=== PATIENT | female | born 1975 | race Hispanic/Latino ===

== ENCOUNTER 2017-11-02 21:44 | Emergency (ER) | payer BC, OTHER ==
--- NOTE | 2017-11-03 00:05 | ER ---
Nurse's Notes [facility] Name: Kateryna Palmer Age: 42 yrs Sex: Female : 1975 Arrival Date: 11/02/2017 Time: 21:48 Bed 14 Private MD: Diagnosis: Contusion of left upper arm Presentation: 11/02 21:51 Presenting complaint: Patient states: that at work today she got hit with a steal metal fc heavy door to left upper arm. She is having pain. Transition of care: patient was not received from another setting of care. Onset of symptoms was November 02, 2017 at 14:30. Risk Assessment: Do you want to hurt yourself or someone else? Patient reports no desire to harm self or others. Initial Sepsis Screen: Does the patient meet any 2 criteria? No. Patient's initial sepsis screen is negative. Does the patient have a suspected source of infection? No. Patient's initial sepsis screen is negative. Care prior to arrival: Medication(s) given: Motrin, 800 mg, last at 1520. 21:51 Method Of Arrival: Ambulatory 21:51 Acuity: MIKA 4 fc Triage Assessment: 21:53 General: Appears comfortable, well groomed, Behavior is calm, cooperative, appropriate fc for age. Pain: Complains of pain in left arm Pain currently is 7 out of 10 on a pain scale. Quality of pain is described as aching, throbbing, Pain began today at 1430 Is continuous, Aggravated by increased activity, repositioning. EENT: No deficits noted. Neuro: Level of Consciousness is awake, alert, obeys commands, Oriented to person, place, time, situation. Cardiovascular: No deficits noted. Respiratory: No deficits noted. GI: No deficits noted. : No deficits noted. Derm: Skin is pink, warm \T\ dry. Musculoskeletal: Circulation, motion, and sensation intact. Capillary refill < 3 seconds, Range of motion: intact in all extremities, Reports pain in left arm and shoulder. Injury Description: left arm got hit by steal metal door. 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 - Social history:: Smoking status: Patient/guardian denies using tobacco. - Ebola Screening: : Patient negative for fever greater than or equal to 101.5 degrees Fahrenheit, and additional compatible Ebola Virus Disease symptoms Patient denies exposure to infectious person Patient denies travel to an Ebola-affected area in the 21 days before illness onset. Screenin:57 Abuse screen: Denies threats or abuse. Nutritional screening: No deficits noted. Tuberculosis screening: Fall Risk None identified. Assessment: 22:13 General: Appears in no apparent distress. uncomfortable, Behavior is calm, cooperative, jd3 appropriate for age. Pain: Complains of pain in left arm Pain currently is 7 out of 10 on a pain scale. Quality of pain is described as aching. Neuro: Level of Consciousness is awake, alert, obeys commands, Oriented to person, place, time, situation, Appropriate for age. Cardiovascular: Capillary refill < 3 seconds Patient's skin is warm and dry. Respiratory: Airway is patent Respiratory effort is even, unlabored, Respiratory pattern is regular, symmetrical. GI: No signs and/or symptoms were reported involving the gastrointestinal system. : No signs and/or symptoms were reported regarding the genitourinary system. EENT: No signs and/or symptoms were reported regarding the EENT system. Derm: Skin is intact, Skin is dry, Skin is normal, Skin temperature is warm. Musculoskeletal: Circulation, motion, and sensation intact. Range of motion: intact in all extremities. 23:49 Reassessment: Patient appears in no apparent distress at this time. Patient and/or jd3 family updated on plan of care and expected duration. Pain level reassessed. Patient is alert, oriented x 3, equal unlabored respirations, skin warm/dry/pink. 11/03 00:15 Reassessment: Patient appears in no apparent distress at this time. Patient and/or jd3 family updated on plan of care and expected duration. Pain level reassessed. Patient is alert, oriented x 3, equal unlabored respirations, skin warm/dry/pink. pt reported understanding of discharge instructions, even and steady gait upon discharge. Vital Signs: 11/02 21:55 BP 155 / 93; Pulse 66; Resp 20; Temp 97.5(O); Pulse Ox 96% on R/A; Weight 63.5 kg (R); fc Height 4 ft. 8 in. (142.24 cm) (R); Pain 7/10; 22:39 BP 136 / 84; Pulse 66; Resp 16 S; Pulse Ox 97% on R/A; Pain 7/10; jd3 23:49 BP 140 / 85; Pulse 60; Resp 17 S; Pulse Ox 97% on R/A; Pain 7/10; jd3 21:55 Body Mass Index 31.39 (63.50 kg, 142.24 cm) ED Course: 21:48 Patient arrived in ED. es 21:52 Triage completed. fc 21:55 Arm band placed on Patient placed in an exam room, on a stretcher. 21:57 Patient has correct armband on for positive identification. Call light in reach. 22:09 Joce Valdez MD is Attending Physician. 22:13 Christophe Rowley RN is Primary Nurse. jd3 23:35 Humerus Left XRAY In Process Unspecified. EDAZ 11/03 00:04 Abdullahi Alejandro MD is Referral Physician. 00:16 No provider procedures requiring assistance completed. Patient did not have IV access jd3 during this emergency room visit. Administered Medications: 00:09 Drug: [place] 5 mg-325 mg 1 tabs Route: PO; jd3 00:16 Follow up: Response: Medication administered at discharge. jd3 Outcome: 00:04 Discharge ordered by . 00:16 Discharged to home ambulatory, with family. jd3 00:16 Condition: stable 00:16 Discharge instructions given to patient, family, Instructed on discharge instructions, follow up and referral plans. medication usage, Demonstrated understanding of instructions, follow-up care, medications, Prescriptions given X 1. 00:17 Patient left the ED. jd3 Signatures: Dispatcher [employer] EDAZ Jimena Madden Felicia, RN RN Joce Valdez MD MD Christophe Rowley RN RN jd3
--- NOTE | 2017-11-03 00:05 | EDPHYS ---
Physician Documentation [facility] Name: Kateryna Palmer Age: 42 yrs Sex: Female : 1975 Arrival Date: 11/02/2017 Time: 21:48 Bed 14 Private MD: ED Physician Joce Valdez HPI: 11/02 23:57 This 42 yrs old Female presents to ER via Ambulatory with complaints of Arm gs Injury. 23:57 The patient or guardian complains of injury. The complaints affect the left bicep and gs left tricep. Context: The problem was sustained at work, resulted from a direct blow, by a door, from a heavy object. Onset: The symptoms/episode began/occurred acutely, today, at 14:00. Treatment prior to arrival includes: over the counter medications, NSAIDS. Modifying factors: The symptoms are alleviated by nothing. the symptoms are aggravated by movement, lifting weight. Associated signs and symptoms: Pertinent positives: tingling. Severity of symptoms: At their worst the symptoms were moderate, in the emergency department the symptoms are unchanged. The patient has not experienced similar symptoms in the past. 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 - Social history:: Smoking status: Patient/guardian denies using tobacco. - Ebola Screening: : Patient negative for fever greater than or equal to 101.5 degrees Fahrenheit, and additional compatible Ebola Virus Disease symptoms Patient denies exposure to infectious person Patient denies travel to an Ebola-affected area in the 21 days before illness onset. ROS: 23:57 All other systems are negative. gs Exam: 23:57 Head/Face: Normocephalic, atraumatic. Eyes: Pupils equal round and reactive to light, gs extra-ocular motions intact. Lids and lashes normal. Conjunctiva and sclera are non-icteric and not injected. Cornea within normal limits. Periorbital areas with no swelling, redness, or edema. ENT: Nares patent. No nasal discharge, no septal abnormalities noted. Tympanic membranes are normal and external auditory canals are clear. Oropharynx with no redness, swelling, or masses, exudates, or evidence of obstruction, uvula midline. Mucous membranes moist. Neck: Trachea midline, no thyromegaly or masses palpated, and no cervical lymphadenopathy. Supple, full range of motion without nuchal rigidity, or vertebral point tenderness. No Meningismus. Chest/axilla: Normal chest wall appearance and motion. Nontender with no deformity. No lesions are appreciated. Cardiovascular: Regular rate and rhythm with a normal S1 and S2. No gallops, murmurs, or rubs. Normal PMI, no JVD. No pulse deficits. Respiratory: Lungs have equal breath sounds bilaterally, clear to auscultation and percussion. No rales, rhonchi or wheezes noted. No increased work of breathing, no retractions or nasal flaring. Abdomen/GI: Soft, non-tender, with normal bowel sounds. No distension or tympany. No guarding or rebound. No evidence of tenderness throughout. Back: No spinal tenderness. No costovertebral tenderness. Full range of motion. Skin: Warm, dry with normal turgor. Normal color with no rashes, no lesions, and no evidence of cellulitis. Neuro: Awake and alert, GCS 15, oriented to person, place, time, and situation. Cranial nerves II-XII grossly intact. Motor strength 5/5 in all extremities. Sensory grossly intact. Cerebellar exam normal. Normal gait. 23:57 Constitutional: The patient appears alert, awake. 23:57 Musculoskeletal/extremity: Extremities: noted in the left tricep and left bicep: tenderness, There is no evidence of deformity, swelling, ROM: no acute changes, Circulation is intact in all extremities. Sensation intact. Vital Signs: 21:55 BP 155 / 93; Pulse 66; Resp 20; Temp 97.5(O); Pulse Ox 96% on R/A; Weight 63.5 kg (R); fc Height 4 ft. 8 in. (142.24 cm) (R); Pain 7/10; 22:39 BP 136 / 84; Pulse 66; Resp 16 S; Pulse Ox 97% on R/A; Pain 7/10; jd3 23:49 BP 140 / 85; Pulse 60; Resp 17 S; Pulse Ox 97% on R/A; Pain 7/10; jd3 21:55 Body Mass Index 31.39 (63.50 kg, 142.24 cm) MDM: 22:49 Patient medically screened. 23:57 Differential diagnosis: closed fracture, contusion. Data reviewed: vital signs, nurses notes. Response to treatment: the patient's symptoms have mildly improved after treatment, and as a result, I will discharge patient. 11/02 22:50 Order name: Humerus Left XRAY gs Administered Medications: 11/03 00:09 Drug: [place] 5 mg-325 mg 1 tabs Route: PO; jd3 00:16 Follow up: Response: Medication administered at discharge. jd3 Disposition: 11/03/17 00:04 Discharged to Home. Impression: Contusion of left upper arm. - Condition is Stable. - Discharge Instructions: Contusion, [id number]. - Prescriptions for Tylenol- Codeine #4 300-60 mg Oral Tablet - take 1 tablet by ORAL route every 6 hours As needed; 6 tablet. - Medication Reconciliation Form, Thank You Letter, Antibiotic Education, Prescription Opioid Use, Work release form form. - Follow up: Abdullahi Alejandro MD; When: 2 - 3 days; Reason: Re-evaluation by your physician. Signatures: Dispatcher [employer] EDMS Gertrude Martell RN RN Joce Valdez MD MD Christophe Rowley RN RN jd3 Corrections: (The following items were deleted from the chart) 00:17 00:04 11/03/2017 00:04 Discharged to Home. Impression: Contusion of left upper arm. jd3 Condition is Stable. Forms are Medication Reconciliation Form, Thank You Letter, Antibiotic Education, Prescription Opioid Use. Follow up: Dr. Abdullahi Alejandro; When: 2 - 3 days; Reason: Re-evaluation by your physician.
[2017-11-03] MEDS ORDERED: HYDROCODONE/APAP 5/325 MG TAB ONE (00:08)
--- NOTE | 2017-11-03 07:48 | RAD REPORT ---
EXAM DESCRIPTION: RAD - Humerus Left - 11/02/2017 11:36 pm CLINICAL HISTORY: Left arm pain status post injury FINDINGS: No fracture is seen
== END 2017-11-03 00:17 | disposition home or self-care (01) ==
LOC: ER 21:44
DX: S40.022A Contusion of left upper arm, initial encounter (principal); W22.8XXA Striking against or struck by other objects, initial encounter; Y93.89 Activity, other specified; Y92.69 Other specified industrial and construction area as the place of occurrence of the external cause
CPT/HCPCS: 99283

== ENCOUNTER 2019-01-21 18:11 | Emergency (ER) | payer OTHER, SELFPAY ==
--- NOTE | 2019-01-21 18:29 | ER ---
Nurse's Notes [facility] Name: Kateryna Palmer Age: 43 yrs Sex: Female : 1975 Arrival Date: 01/21/2019 Time: 18:12 Bed Waiting Private MD: Diagnosis: Presentation: 01/21 18:28 Note Patient told registration staff she was just going to see her family doctor [email or web address] tomorrow. ED Course: 18:12 Patient arrived in ED. as Administered Medications: No medications were administered Outcome: 18:28 Patient left the ED. aj1 Signatures: Belem Salazar RN RN aj1 Gi Mcmanus
== END 2019-01-21 18:28 | disposition left against medical advice (07) ==
LOC: ER 18:11
DX: Z02.9 Encounter for administrative examinations, unspecified (principal); Z53.21 Procedure and treatment not carried out due to patient leaving prior to being seen by health care provider

== ENCOUNTER 2021-09-28 03:23 | Inpatient (IN) | payer BC, SELFPAY ==
--- OUTSIDE RECORDS SUMMARY | 2021-09-28 03:26 | XMS REPORT | Continuity of Care Document ---
:1975 Author Organization [facility] t Address [address] [place] [address] Care Team Providers Name Role Phone Boyd Phelps MD Primary Care Physician [phone] Amber KRUEGER Attending Clinician Michel Phelps MD Attending Clinician PANCHITO Attending Clinician Unavailable UNKNOWN Attending Clinician Unavailable ALAINA Attending Clinician Unavailable Payers Payer Name Policy Type Policy Number Effective Date Expiration Date S [facility] [id number] 2016 EMPLOYEE PLAN 00:00:00 Problems Condition Condition Condition Status Onset Resolution Last Treating Co mments Source Name Details Category Date Date Treatment Clinician Date Colon Colon Disease Active Univers cancer cancer 6-11 [place] Attention Attention Disease Active 2020-04 Uni vers deficit deficit 1-02 ity of disorder disorder 00:00: [place] (ADD) in (ADD) in 00 Medica l adult adult Branch Hyperchole Hyperchole Disease Active U nivers sterolemia sterolemia 5-05 it y of 00:00: [place] 00 Medical Branch Chest pain Chest pain Disease Active 2019-04 U nivers 2-26 ity of 00:00: [place] 00 Medical Branch Chronic Chronic Disease Active 2019-04 Univers low back low back 2-26 [place] of pain with pain [place] bilateral bilateral 00 Medi dell sciatica sciatica Branch Leg pain Leg pain Disease Active Unive rs 4-01 ity of 00:00: [place] [id number] Medical Branch Palpitatio Palpitatio Disease Active U nivers ns ns 3-16 ity of 00:00: [place] [address] Medical Branch Obesity Obesity Disease Active 2019- Univers (BMI (BMI 3-16 ity of 30-39.9) 30-39.9) 00:00: [place] [address] Medical Branch Essential Essential Disease Active Uni vers hypertensi hypertensi 3-16 it y of on on 00:00: [place] [address] Medical Branch PVC PVC Disease Active Univers (premature (premature 3-16 [place] of ventric[place] ventricula [place] Medical contractio contractio Br anch n) n) Abnormal Abnormal Disease Active Unive rs EKG EKG 3-16 ity of 00:00: [place] [address] Medical Branch Elevated Elevated Disease Active Unive rs brain brain 3-16 ity of natriureti natriureti [place] c peptide c peptide 00 Medi dell (BNP) (BNP) Branch level level Allergies, Adverse Reactions, Alerts Allergy Allergy Status Severity Reaction(s) Onset Inactive Treating Comm ents Source Name Type Date Date Clinician NO KNOWN Drug Active Univers ALLERGIE Class ity of S [facility] Social History Social Habit Start Date Stop Date Quantity Comments Source Exposure to Not sure [facility] SARS-CoV-2 [place] [facility] (event) Branch History SDOH University o f Alcohol Std [place] [facility] Drinks Branch History SDOH University o f Alcohol Binge [place] [facility] Branch History SDIL University o f Alcohol Comment [place] [facility] ical [facility] Alcohol intake 2021-09-26 2021-09-26 Lifetime University of 00:00:00 00:00:00 non-drinker [place] [facility] (finding) Branch History SDOH 2021-09-25 2021-09-25 1 University o f Alcohol Frequency 00:00:00 00:00:00 [place] M edical Branch Tobacco use and 2019-01-21 2019-01-21 Never used Universit y of exposure 00:00:00 00:00:00 [facility] Sex Ass[birth year] At [birth year] Universit y of 00:00:00 00:00:00 [facility] Smoking Status Start Date Stop Date Source Never smoker [facility] Medications Ordered Filled Start Stop Current Ordering Indication Dosage Frequency Signature Comments Components Source Medication Medication Date Date Medication? Clinician (SIG) Name Name lisdexamfet Yes [id number] 40mg Take 1 Univers amine 1-31 capsule by ity of (VYVANSE) 00:00: mouth [place] 40 mg 00 every Medical capsule morning. Branch METOPROLOL Yes [id number] TAKE 1 U nivers SUCCINATE 1-10 TABLET BY ity o f XL 25 mg 24 00:00: MOUTH [place] hr tablet 00 EVERY DAY Medic al Branch felodipine Yes [id number] 5mg Take 1 U nivers 5 mg 24 hr 9-17 tablet by ity of tablet 00:00: mouth [place] 00 daily. Medical Branch METOPROLOL Yes PVC TAKE 1 Unive rs SUCCINATE 5-07 (premature TABLET BY ity of XL 25 mg 24 00:00: ventricular MOUTH [place] hr tablet 00 contraction EVERY DAY Medical ) Branch METOPROLOL PVC TAKE 1 Univ ers SUCCINATE 2-01 05-07 (premature TABLET BY ity of XL 25 mg 24 00:00: 00:00 ventricular MOUTH [place] hr tablet 00 :00 contraction EVERY DAY Medical ) Branch felodipine 2019-04 Yes Uncontrolle 5mg Take 1 Univers 5 mg 24 hr 2-21 d tablet by ity of tablet 00:00: hypertensio mouth [place] 00 n daily. Medical Branch methocarbam 2019-04 Yes Chronic 500mg Take 1 Univers oL 500 mg 2-21 bilateral tablet by ity of tablet 00:00[place] 4 [place] pain with (four) Medical bilateral times Branch sciatica daily as needed (muscle pain or spasm). Immunizations Ordered Filled Immunization Date Status Comments Sourc e Immunization Name Name SARS-COV-2 COVID-19 2021-05-02 Completed Unive rsity of MODERNA 0.5ML 00:00:00 [place] Medic al BOOSTER VACCINE Branch SARS-COV-2 COVID-19 2020-05-23 Completed Unive rsity of MODERNA VACCINE 00:00:00 [place] Med ical Branch SARS-COV-2 COVID-19 2020-04-25 Completed Unive rsity of MODERNA VACCINE 00:00:00 [place] Med ical Branch Vital Signs Vital Name Observation Time Observation Value Comments Source Heart rate 2021-09-25 21:22:00 78 /min [facility] Body temperature 2021-09-25 21:22:00 36.78 Itzel [facility] Respiratory rate 2021-09-25 21:22:00 18 /min [facility] Body height 2021-09-25 21:22:00 142.2 cm [facility] Body weight 2021-09-25 21:22:00 70.761 kg [facility] BMI 2021-09-25 21:22:00 34.97 kg/m2 [facility] Systolic blood 2021-09-25 21:22:00 168 mm[facility]Hg[facility] Diastolic blood 2021-09-25 21:22:00 102 mm[Hg] [facility] Procedure Date / Time Performed Performing Clinician [facility] e PAP SMEAR-LIQUID 2021-09-25 21:35:00 Brook [facility] [place] Plan of Care Planned Activity Planned Date Details Comments Source Future Scheduled 2021-04-07 Depression screening Uni [facility] Test 00:00:00 (procedure) [code = Medical Branch [id number]] Future Scheduled 2020-12-17 INFLUENZA VACCINE [facility] Test 00:00:00 (Season Ended) [code Medical Branch = INFLUENZA VACCINE (Season Ended)] Future Scheduled 2016 Screening for [facility] Test 00:00:00 malignant neoplasm Medical [facility] [place] of breast (procedure) [code = 348972929] Future Scheduled 1997 Screening for [facility] Test 00:00:00 malignant neoplasm Medical [facility] of cervix (procedure) [code = 322575397] Future Scheduled 1995-06-25 DTaP,Tdap,and Td Univers [facility] Test 00:00:00 Vaccines (1 - Tdap) Medical Branch [code = DTaP,Tdap,and Td Vaccines (1 - Tdap)] Future Scheduled 1994 Hepatitis C [facility] Test 00:00:00 screening Medical Branch (procedure) [code = [id number]] Future Scheduled 1992 SARS-CoV-2 [facility] Test 00:00:00 (COVID-19) Vaccine Medical B ranch (1) [code = SARS-CoV-2 (COVID-19) Vaccine (1)] Encounters Start End Encounter Admission Attending Care Care Encounter Source Date/Time Date/Time Type Type Clinicians Facility Department ID 2021-02-12 Emergency [facility] [id number] Univers 14:35:50 [facility] 2021-09-25 2021-09-25 Office Amber [facility] [id number] Univers 16:15:00 16:39:48 Visit Brook STEWART [id number] it y of WOMEN'S [id number] [facility] [id number] [address] 2019-07-02 2019-07-02 [id number] Univers 13:20:00 13:20:00 FELIPA [id number] [facility] 2019-07-02 2019-07-02 Outpatient R PANCHITO [facility] [id number] Univers 13:20:00 13:20:00 FELIPA [facility] 2019-07-01 2019-07-01 Outpatient R [facility] [id number] Univers 21:00:00 21:00:00 [id number] [facility] 2019-07-01 2019-07-01 Outpatient R UNKNOWN, [facility] [id number] Univers 21:00:00 21:00:00 ATTENDING maria elena [facility] 2019-01-21 2019-01-21 [id number] Univers 19:00:00 20:03:07 CLIFF [facility] Results This patient has no known results.
[2021-09-28 06:10] LABS: Urine Blood 1+ (Negative); Urine Glucose Negative (Negative); Urine Protein Negative (Negative)
[2021-09-28 06:19] LABS: Absolute Lymphocytes (CBC) 1.8 K/uL (0.7-4.9); Hematocrit 42.7 % (36.0-45.0); MPV 8.7 fL (7.6-11.3); RBC Red Blood Cell Count 4.81 M/uL (3.86-4.86)
[2021-09-28 06:35] LABS: Albumin 3.8 g/dL (3.4-5.0); Bilirubin Direct 0.3 mg/dL (0-0.2); Bilirubin Total 1.3 mg/dL (0.2-1.0); Magnesium 2.2 mg/dL (1.8-2.4); Potassium 3.2 mmol/L (3.5-5.1); Protein, Total 7.9 g/dL (6.4-8.2)
[2021-09-28 06:47] LABS: Troponin High Sensitivity 91.7 pg/mL (<58.9)
[2021-09-28] MEDS ORDERED: POTASSIUM 25 MEQ EFFERV TAB ONE (07:12)
--- NOTE | 2021-09-28 07:17 | ER ---
Nurse's Notes [facility] Name: Kateryna Palmer Age: 46 yrs Sex: Female : 1975 Arrival Date: 09/28/2021 Time: 03:27 Bed 14 Private MD: Diagnosis: Dyspnea, unspecified-Elevated Troponin level Presentation: 09/28 04:12 Chief complaint: Patient states: C/o cough, SOB, and left shoulder pain 8/, states ll3 cough started about 1 month ago, states was reactive to TB screen 2 months ago, states they took a chest x-ray and it was clear, states grandson tested positive for covid. Coronavirus screen: Vaccine status: Patient reports receiving the 2nd dose of the covid vaccine. cough unrelated to allergies, difficulty breathing, muscle pain, shortness of breath. Ebola Screen: No symptoms or risks identified at this time. Initial Sepsis Screen: Does the patient meet any 2 criteria? No. Patient's initial sepsis screen is negative. Does the patient have a suspected source of infection? No. Patient's initial sepsis screen is negative. Risk Assessment: Do you want to hurt yourself or someone else? Patient reports no desire to harm self or others. Onset of symptoms is unknown. 04:12 Method Of Arrival: Ambulatory ll3 04:12 Acuity: MIKA 3 ll3 Triage Assessment: 04:16 General: Appears uncomfortable, Behavior is calm, cooperative. Pain: Complains of pain ll3 in anterior aspect of left shoulder Pain currently is 8 out of 10 on a pain scale. Neuro: Level of Consciousness is awake, alert, obeys commands, Oriented to person, place, time, situation. Cardiovascular: Patient's skin is warm and dry. Respiratory: Reports shortness of breath pain with cough pain with movement Respiratory effort is even, unlabored, Respiratory pattern is regular, symmetrical, Onset: The symptoms/episode began/occurred at an unknown time. the patient has mild shortness of breath. Respiratory: Derm: Skin is pink, warm \T\ dry. 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 - Social history:: Smoking status: Patient denies any tobacco usage or history of. Screenin:20 Abuse screen: Denies threats or abuse. Nutritional screening: No deficits noted. ll3 Tuberculosis screening: Never had TB. Possible symptoms: cough for more than 2 weeks, Risk factors: previous positive skin test. 06:50 Fall Risk No fall in past 12 months (0 pts). No secondary diagnosis (0 pts). IV access ll3 (20 points). Ambulatory Aid- None/Bed Rest/Nurse Assist (0 pts). Gait- Normal/Bed Rest/Wheelchair (0 pts) Mental Status- Oriented to own ability (0 pts). Total Nathan Fall Scale indicates No Risk (0-24 pts). Assessment: 04:20 General: See triage assessment. Cardiovascular: Rhythm is. Respiratory: Airway is patentll3 05:30 Reassessment: No changes from previously documented assessment. Patient and/or family ll3 updated on plan of care and expected duration. Pain level reassessed. Patient is alert, oriented x 3, equal unlabored respirations, skin warm/dry/pink. 06:47 Reassessment: No changes from previously documented assessment. Patient and/or family ll3 updated on plan of care and expected duration. Pain level reassessed. Patient is alert, oriented x 3, equal unlabored respirations, skin warm/dry/pink. 07:00 Reassessment: No changes from previously documented assessment. Patient and/or family ll1 updated on plan of care and expected duration. Pain level reassessed. Patient is alert, oriented x 3, equal unlabored respirations, skin warm/dry/pink. report received from night monitor RN. 08:00 Reassessment: No changes from previously documented assessment. Patient and/or family ll1 updated on plan of care and expected duration. Pain level reassessed. Patient is alert, oriented x 3, equal unlabored respirations, skin warm/dry/pink. Vital Signs: 04:12 BP 167 / 89; Pulse 75; Resp 19; Temp 98.6(O); Pulse Ox 99% on R/A; Weight 71.67 kg (R); ll3 Height 4 ft. 7 in. (139.70 cm) (R); Pain 8/10; 05:30 BP 153 / 103; Pulse 74; Resp 20; Pulse Ox 100% on R/A; ll3 06:47 BP 153 / 95; Pulse 68; Resp 20; Pulse Ox 100% on R/A; ll3 07:45 BP 186 / 109; Pulse 81; Resp 18; Pulse Ox 100% on R/A; ll1 04:12 Body Mass Index 36.72 (71.67 kg, 139.70 cm) ll3 ED Course: 03:27 Patient arrived in ED. bp1 03:59 Ramesh Pierce MD is Attending Physician. mh7 04:16 Triage completed. ll3 04:16 Arm band placed on Patient placed in an exam room, on a stretcher, on pulse oximetry. ll3 04:20 Patient has correct armband on for positive identification. Bed in low position. Call ll3 light in reach. Side rails up X 1. 04:30 Chest Pa And Lat (2 Views) XRAY In Process Unspecified. EDMS 06:28 EKG done, by ED staff, reviewed by Ramesh Pierce MD. Missed attempt(s): 22 gauge in mh5 left forearm. 06:44 Ca Pillai, EDITH is Primary Nurse. ll3 06:48 Notified ED physician of a critical lab result(s). troponin of 91.7 Dr Pierce notified. bb 07:00 Warm blanket given. biofuels processing technician on. Pulse ox on. NIBP on. mh5 07:15 Abner Hankins MD is Hospitalizing Provider. mh7 08:12 Missed attempt(s): 22 gauge in right antecubital area. Bleeding controlled, band aid mb4 applied, catheter tip intact. 08:15 Missed attempt(s): 22 gauge in right forearm. Bleeding controlled, band aid applied, ll1 catheter tip intact. 08:16 Missed attempt(s): 22 gauge in right forearm. Bleeding controlled, band aid applied, ll1 catheter tip intact. 08:31 Inserted saline lock: 22 gauge in right wrist, using aseptic technique. ss 08:44 Chest For Pe Angio In Process Unspecified. EDMS 21:13 No provider procedures requiring assistance completed. Patient admitted, IV remains in vc1 place. Administered Medications: 07:30 Not Given (Duplicate Order): Aspirin Chewable Tablet 162 mg PO once ll1 07:39 Drug: Potassium Effervescent Tablet 50 mEq Route: PO; ll1 07:40 Drug: Aspirin Chewable Tablet 162 mg Route: PO; ll1 Medication: 06:50 VIS not applicable for this client. ll3 Outcome: 07:16 Decision to Hospitalize by Provider. [facility] 08:31 Instructed on the need for admit. ss 21:13 Admitted to Tele accompanied by tech, room 414, Report called to EDITH Magana vc1 21:13 Condition: good 21:13 Patient left the ED. vc1 Signatures: Dispatcher [employer] EDMarcella Hardy RN RN bb Rani Zapien RN RN ss Martinez, Maria [facility] Olga Smith [facility] Karla Wilkes RN RN ll1 Obdulia Neely Maurice, MD MD [facility] Ca Pillai RN RN ll3 Laney Chaparro RN RN vc1
--- NOTE | 2021-09-28 07:17 | EDPHYS ---
Physician Documentation [facility] Name: Kateryna Palmer Age: 46 yrs Sex: Female : 1975 Arrival Date: 09/28/2021 Time: 03:27 Bed 14 Private MD: ED Physician Ramesh Pierce HPI: 09/28 04:35 This 46 yrs old Female presents to ER via Ambulatory with complaints of mh7 Shortness Of Breath, Shoulder Pain. 04:35 The patient has shortness of breath with light activity. Onset: The symptoms/episode mh7 began/occurred 2 week(s) ago. Duration: The symptoms are intermittent, with no pattern. The patient's shortness of breath is aggravated by coughing, exertion, light activity, is alleviated by nothing. Associated signs and symptoms: Pertinent positives: non-productive cough, Pertinent negatives: chest pain, diaphoresis, dizziness, fever, hemoptysis, loss of consciousness, nausea, numbness in extremities, visual changes, vomiting. Severity of symptoms: At their worst the symptoms were moderate 7 day(s) ago, in the emergency department the symptoms are unchanged. ICHTHYOLOGIST: 04:16 LMP 09/02/2021 ll3 Historical: - Allergies: 04:16 No Known Allergies; ll3 - Immunization history:: Client reports receiving the 2nd dose of the Covid vaccine. - Social history:: Smoking status: Patient denies any tobacco usage or history of. ROS: 04:35 Constitutional: Negative for fever, chills, and weight loss, Eyes: Negative for injury, mh7 pain, redness, and discharge, ENT: Negative for injury, pain, and discharge, Neck: Negative for injury, pain, and swelling, Cardiovascular: Negative for chest pain, palpitations, and edema, Abdomen/GI: Negative for abdominal pain, nausea, vomiting, diarrhea, and constipation, Back: Negative for injury and pain, : Negative for injury, bleeding, discharge, and swelling, MS/Extremity: Negative for injury and deformity, Skin: Negative for injury, rash, and discoloration, Neuro: Negative for headache, weakness, numbness, tingling, and seizure, Psych: Negative for depression, anxiety, suicide ideation, homicidal ideation, and hallucinations, Allergy/Immunology: Negative for hives, rash, and allergies, Endocrine: Negative for neck swelling, polydipsia, polyuria, polyphagia, and marked weight changes, Hematologic/Lymphatic: Negative for swollen nodes, abnormal bleeding, and unusual bruising. Exam: 04:35 Constitutional: This is a well developed, well nourished patient who is awake, alert, mh7 and in no acute distress. Head/Face: Normocephalic, atraumatic. Eyes: Pupils equal round and reactive to light, extra-ocular motions intact. Lids and lashes normal. Conjunctiva and sclera are non-icteric and not injected. Cornea within normal limits. Periorbital areas with no swelling, redness, or edema. Neck: Trachea midline, no thyromegaly or masses palpated, and no cervical lymphadenopathy. Supple, full range of motion without nuchal rigidity, or vertebral point tenderness. No Meningismus. Chest/axilla: Normal chest wall appearance and motion. Nontender with no deformity. No lesions are appreciated. Cardiovascular: Regular rate and rhythm with a normal S1 and S2. No gallops, murmurs, or rubs. Normal PMI, no JVD. No pulse deficits. Respiratory: Lungs have equal breath sounds bilaterally, clear to auscultation and percussion. No rales, rhonchi or wheezes noted. No increased work of breathing, no retractions or nasal flaring. Abdomen/GI: Soft, non-tender, with normal bowel sounds. No distension or tympany. No guarding or rebound. No evidence of tenderness throughout. Back: No spinal tenderness. No costovertebral tenderness. Full range of motion. Skin: Warm, dry with normal turgor. Normal color with no rashes, no lesions, and no evidence of cellulitis. MS/ Extremity: Pulses equal, no cyanosis. Neurovascular intact. Full, normal range of motion. Neuro: Awake and alert, GCS 15, oriented to person, place, time, and situation. Cranial nerves II-XII grossly intact. Motor strength 5/5 in all extremities. Sensory grossly intact. Cerebellar exam normal. Normal gait. Psych: Awake, alert, with orientation to person, place and time. Behavior, mood, and affect are within normal limits. Vital Signs: 04:12 BP 167 / 89; Pulse 75; Resp 19; Temp 98.6(O); Pulse Ox 99% on R/A; Weight 71.67 kg (R); ll3 Height 4 ft. 7 in. (139.70 cm) (R); Pain 8/10; 05:30 BP 153 / 103; Pulse 74; Resp 20; Pulse Ox 100% on R/A; ll3 06:47 BP 153 / 95; Pulse 68; Resp 20; Pulse Ox 100% on R/A; ll3 07:45 BP 186 / 109; Pulse 81; Resp 18; Pulse Ox 100% on R/A; ll1 04:12 Body Mass Index 36.72 (71.67 kg, 139.70 cm) ll3 MDM: 07:14 Differential diagnosis: Anemia Anxiety Reaction asthma, Bronchitis CHF exacerbation, mh7 Chronic Obstructive Pulmonary Disease Myocardial Infarction pneumonia, Pneumothorax Psychogenic pulmonary edema, Pulmonary Embolism. Data reviewed: vital signs, nurses notes, lab test result(s), cardiac enzymes, CBC, electrolytes, urinalysis, EKG, radiologic studies, plain films. Data interpreted: Pulse oximetry: on room air is 100 %. Interpretation: normal. Counseling: I had a detailed discussion with the patient and/or guardian regarding: the historical points, exam findings, and any diagnostic results supporting the discharge/admit diagnosis, lab results, radiology results, the need for further work-up and treatment in the hospital. Response to treatment: the patient's symptoms have mildly improved after treatment. 07:16 Patient medically screened. [facility] 09/28 04:09 Order name: Influenza Screen (A ; Complete Time: 06:48 [facility] 09/28 04:58 Order name: Basic Metabolic Panel; Complete Time: 06:48 [facility] 09/28 04:58 Order name: CBC with Diff; Complete Time: 06:48 [facility] 09/28 04:58 Order name: D-Dimer; Complete Time: 07:31 [facility] 09/28 04:58 Order name: LFT's; Complete Time: 06:48 [facility] 09/28 04:58 Order name: Magnesium; Complete Time: 06:48 [facility] 09/28 04:58 Order name: NT PRO-BNP; Complete Time: 06:48 [facility] 09/28 04:58 Order name: PT-INR; Complete Time: 07:31 [facility] 09/28 04:58 Order name: Troponin HS; Complete Time: 06:48 [facility] 09/28 05:11 Order name: SARS-COV-2 RT PCR; Complete Time: 06:48 [facility] 09/28 06:10 Order name: Urine Dipstick-Ancillary; Complete Time: 06:48 [facility] 09/28 04:12 Order name: Chest Pa And Lat (2 Views) XRAY ll3 09/28 06:13 Order name: Urine --Ancillary (enter results) 09/28 07:22 Order name: Chest For Pe Angio [facility] 09/28 07:22 Order name: Procalcitonin [facility] 09/28 09:26 Order name: Echo with Doppler [facility] 09/28 10:30 Order name: Creatine Phosphokinase [facility] 09/28 10:30 Order name: T4 Free [facility] 09/28 10:30 Order name: Magnesium [facility] 09/28 10:30 Order name: Thyroid Stimulating Hormone [facility] 09/28 10:58 Order name: Lipid Profile [facility] 09/28 11:05 Order name: Hemoglobin A1c [facility] 09/28 13:16 Order name: Troponin High Sensitivity [facility] 09/28 18:48 Order name: Troponin High Sensitivity [facility] 09/28 04:58 Order name: EKG; Complete Time: 04:58 [facility] 09/28 04:58 Order name: Cardiac monitoring; Complete Time: 06:28 [facility] 09/28 04:58 Order name: EKG - Nurse/Tech; Complete Time: 06:28 [facility] 09/28 04:58 Order name: IV Saline Lock; Complete Time: 06:45 [facility] 09/28 04:58 Order name: Labs collected and sent; Complete Time: 06:13 [facility] 09/28 04:58 Order name: O2 Per Protocol; Complete Time: 05:01 [facility] 09/28 04:58 Order name: O2 Sat Monitoring; Complete Time: 05:01 [facility] 09/28 04:58 Order name: Urine Dipstick-Ancillary (obtain specimen); Complete Time: 06:14 [facility] 09/28 04:58 Order name: Urine Test (obtain specimen); Complete Time: 06:14 [facility] 09/28 08:58 Order name: Diet Heart Healthy; Complete Time: 08:59 ll1 Administered Medications: 07:30 Not Given (Duplicate Order): Aspirin Chewable Tablet 162 mg PO once ll1 07:39 Drug: Potassium Effervescent Tablet 50 mEq Route: PO; ll1 07:40 Drug: Aspirin Chewable Tablet 162 mg Route: PO; ll1 Disposition Summary: 09/28/21 07:16 Hospitalization Ordered Hospitalization Status: Inpatient Admission [facility] Provider: Abner Hankins [facility] Condition: Stable [facility] Problem: new [facility] Symptoms: have improved [facility] Bed/Room Type: Standard [facility] Location: Telemetry/MedSurg (Inpatient)(09/28/21 19:51) Room Assignment: [facility](09/28/21 19:51) Diagnosis - Dyspnea, unspecified - Elevated Troponin level [facility] Forms: - Medication Reconciliation Form [facility] - SBAR form [facility] Signatures: Dispatcher [employer] EDMS Rani Zapien RN RN ss Chaim Suh, HOTEL SECURITY OFFICER-C HOTEL SECURITY OFFICER-Cla1 Jacquelyn Murphy RN RN Karla Wilkes RN RN ll1 Ramesh Pierce MD MD [facility] Ca Pillai RN RN ll3 Corrections: (The following items were deleted from the chart) 05:00 04:58 Chest Single View+RAD.RAD.BRZ ordered. EDMS EDMS 05:11 04:07 Influenza Screen (A \T\ B)+BA.LAB.BRZ ordered. EDMS EDMS 11:02 07:16 Telemetry/MedSurg (Inpatient) [facility] 11:02 07:16 [facility] 19:51 11:02 [facility] ER HOLD ss cg 19:51 11:02 ERHOLD- ss cg
[2021-09-28 07:26] LABS: Protime INR 1.02
[2021-09-28] MEDS ORDERED: ASPIRIN 81 MG CHEWABLE TABLET ONE ×2 (07:39→07:41)
--- NOTE | 2021-09-28 09:03 | RAD REPORT ---
EXAM DESCRIPTION: CT - Chest For Pe Angio - 09/28/2021 8:43 am CLINICAL HISTORY: Shortness of breath COMPARISON: 2016 TECHNIQUE: Dynamically enhanced axial 3 mm thick images of the chest were obtained during administra tion of <100> mL Isovue 370 IV contrast. Coronal and oblique reconstruction images were generated and reviewed. Exam utilizes a protocol for optimal evaluation of pulmonary arterial tree. Maximum intensity projections 3D imaging was utilized All CT scans are performed using dose optimization technique as appropriate and may include automated exposure control or mA/KV adjustment according to patient size. FINDINGS: A pulmonary embolus is not seen. A thoracic aortic aneurysm is not noted. Bovine aortic. Heart is mildly enlarged. A pleural effusion is not seen. A pericardial effusion is not seen. A lung consolidation is not present. IMPRESSION: Negative for a pulmonary embolism.
[2021-09-28] MEDS ORDERED: HYDROCODONE/APAP 5/325 MG TAB PO PRN (09:22)
[2021-09-28] MEDS ORDERED: ALBUTEROL 2.5 MG/3 ML NEB SOL NEB PRN ×2 (09:25→15:00)
[2021-09-28] MEDS ORDERED: IPRATROPIUM BROM 0.5MG/2.5ML NEB PRN ×2 (09:25→15:00)
[2021-09-28] MEDS ORDERED: ACETAMINOPHEN 500 MG TAB PO PRN (09:25)
[2021-09-28] MEDS ORDERED: ONDANSETRON 4 MG/2 ML VIAL IV PRN (09:25)
--- NOTE | 2021-09-28 10:00 | P.HP ---
Certification for Inpatient Patient admitted to: Inpatient With expected LOS: >2 Midnights Patient will require the following post-hospital care: None Practitioner: I am a practitioner with admitting privileges, knowledge of patient current condition, hospital course, and medical plan of care. Services: Services provided to patient in accordance with Admission requirements found in Title 42 Section 412.3 of the Code of Federal Regulations Patient History Date of Service: 09/28/21 Reason for admission: Chest pain and shortness of breath with exertion. History of Present Illness: Patient is a 46-year-old female with a past medical history significant for obesity who presents with complaint of shortness of breath and cough. Patient reported that symptoms has been ongoing for the past 2 weeks. Patient reports left chest wall pain onset this morning. Patient indicated that pain radiates to her left shoulder and neck. Patient rated pain as 7/10 in severity and described pain as pressure in quality. Patient also reports that she has been having intermittent palpitations for quite some time now, the last episode being this morning. Patient reports associated signs and symptoms of bilateral lower extremity edema, abdominal distention, polydipsia and polyuria. Patient denies any other signs or symptoms. Symptoms are aggravated with exertion and relieved by nothing. Patient decided to present to the hospital due to worsening symptoms. Allergies No Known Allergies Allergy (Unverified 09/28/21 09:39) Home medications list reviewed: Yes Home Medications: Doxycycline Hyclate 100 mg PO BID #20 tablet 01/13/17 Mupirocin Oint [Bactroban 2% Ointment] 8 appl TOP SEECOM #1 tube 01/13/17 Sulfamethoxazole/Trimethoprim [Bactrim Ds Tablet] 1 each PO BID #20 tablet 01/13/17 traMADol HCL [Ultram*] 50 mg PO TID PRN #20 tab 01/13/17 - Past Medical/Surgical History Diabetic: No -: Obesity Past Surgical History: Reviewed- Non-Contributory - Family History Mother -: Hypertension - Social History Smoking Status: Never smoker Alcohol use: No CD- Drugs: No Caffeine use: Yes Review of Systems General: Unremarkable Eyes: Unremarkable ENT: Unremarkable Respiratory: Cough, Shortness of Breath, SOB with Excertion Cardiovascular: Chest Pain, Palpitations Gastrointestinal: Distention, Unremarkable Genitourinary: Frequency Musculoskeletal: Neck Pain, Shoulder Pain, Pedal edema Integumentary: Unremarkable Neurological: Unremarkable Lymphatics: Unremarkable Physical Examination - Physical Exam General: Alert, Oriented x3, Cooperative HEENT: Normocephalic, PERRLA, Mucous membr. moist/pink Neck: Supple, 2+ carotid pulse no bruit, JVD not distended Respiratory: Clear to auscultation bilaterally, Normal air movement Cardiovascular: Normal pulses, Regular rate/rhythm, Edema Capillary refill: <2 Seconds Gastrointestinal: Normal bowel sounds, Hypoactive, Soft and benign, Distended Musculoskeletal: No clubbing, No swelling, No contractures, Swelling Integumentary: No rashes, No breakdown, No erythema, No warmth Neurological: Normal gait, Normal speech, Normal strength at 5/5 x4 extr, Sensation intact Lymphatics: No axilla or inguinal lymphadenopathy - Studies Laboratory Data (last 24 hrs) 09/28/21 06:00: PT 11.2, INR 1.02 09/28/21 06:00: WBC 5.9, Hgb 14.5, Hct 42.7, Plt Count 293 09/28/21 06:00: Sodium 137, Potassium 3.2 L, BUN 8, Creatinine 0.68, Glucose 93, Magnesium 2.2, Total Bilirubin 1.3 H, AST 14 L, ALT 31, Alkaline Phosphatase 64 Microbiology Data (last 24 hrs): 09/28/21 04:06 Nasopharnyx Influenza Type A Antigen Screen - Final 09/28/21 04:06 Nasopharnyx Influenza Type B Antigen Screen - Final Assessment and Plan - Plan --Chest pain of unclear etiology. To rule out ACS. Troponin level elevated. Will trend serial troponins. Cardiology consulted. Echocardiogram pending to assess LV\valvular functions and wall motion. Telemetry to monitor for any significant arrhythmia. Cardiology plans a stress test in a.m. Will await further recommendation from assembler cards and announcements. --Elevated BNP. Patient reports bilateral lower extremity edema and shortness of breath with exertion. Echocardiogram pending. We will give a one-time dose of Lasix. Further management per assembler cards and announcements. --Hypokalemia. Replete as needed. --Class II obesity. Likely secondary to excess calories intake. Patient counseled on weight reduction, diet and exercise therapy. --Palpitations. Echocardiogram pending. Telemetry to monitor for any significant arrhythmia. Further management per assembler cards and announcements. --Elevated blood pressure. No diagnosis of hypertension reported. Will manage BP with hydralazine as needed. --Acute pain. We will manage pain with current pain medication regimen. --DVT prophylaxis with Lovenox subQ Discharge Plan: Home Plan to discharge in: 48 Hours - Advance Directives Does patient have a Living Will: No Does patient have a Durable POA for Healthcare: No - Code Status/Comfort Care Code Status Assessed: Yes Code Status: Full Code Physician Review: Patient Assessed, Agree with Above Assessment and Plan
[2021-09-28] MEDS ORDERED: FUROSEMIDE 40 MG/4 ML VIAL IV ONE (10:24)
[2021-09-28 10:30] LABS: Magnesium 2.2 mg/dL (1.8-2.4); Thyroid Stimulating Hormone 1.98 uIU/mL (0.360-3.740)
[2021-09-28 12:59] VITALS: BMI 36.5
--- NOTE | 2021-09-28 13:32 | EKG ---
Test Date: 2021-09-28 Test Time: 06:35:14 Residential Builder: HERMILA MEASUREMENT RESULTS: Intervals: Rate: 66 HI: 138 QRSD: 94 QT: 434 QTc: 454 [place]: P: 35 HI: 138 QRS: 42 T: 105 INTERPRETIVE STATEMENTS: Normal sinus rhythm ST & T wave abnormality, consider anterolateral ischemia Abnormal ECG Compared to ECG 04/15/2017 04:00:55 ST (T wave) deviation now present Possible ischemia now present T-wave abnormality no longer present Electronically Signed On 09-28-21 13:31:19 CDT by Andrea Cohen
[2021-09-28] MEDS ORDERED: FUROSEMIDE 40 MG/4 ML VIAL ONE (14:48)
--- NOTE | 2021-09-28 15:33 | RAD REPORT ---
EXAM DESCRIPTION: RAD - Chest Pa And Lat (2 Views) - 09/28/2021 4:29 am CLINICAL HISTORY: The patient is 46 years old and is Female; Cough TECHNIQUE: Two views of the chest. COMPARISON: No relevant prior studies available. FINDINGS: Lungs: No pulmonary vascular congestion or consolidation. Pleural space: Unremarkable. No pneumothorax. Heart: The cardiac silhouette is enlarged versus artifact of AP technique. Mediastinum: Unremarkable. Bones/joints: No acute fracture visualized. Upper abdomen: No free air in the visualized upper abdomen. IMPRESSION: No acute cardiopulmonary process identified. Electronically signed by: Katiana Velásquez MD 09/28/2021 4:45 AM CDT Due to temporary technical issues with the PACS/Fluency reporting system, reports are being signed by the in house radiologist without review as a courtesy to ensure prompt reporting. The interpreting r adiologist is fully responsible for the content of the report.
[2021-09-29 04:08] LABS: Hematocrit 42.4 % (36.0-45.0); Lymphocytes % 27.9 % (15.3-44.8); MPV 8.9 fL (7.6-11.3); RBC Red Blood Cell Count 4.78 M/uL (3.86-4.86)
[2021-09-29] MEDS ORDERED: ENOXAPARIN 40 MG/0.4 ML SQ SCH (09:00)
[2021-09-29] MEDS: ASPIRIN 325 MG TAB PO SCH (09:00)
[2021-09-29] MEDS: ENOXAPARIN 40 MG/0.4 ML SQ SCH (09:17)
[2021-09-29] MEDS: HYDRALAZINE HCL 20 MG/ML VIAL IV PRN (09:17)
[2021-09-29] MEDS ORDERED: REGADENOSON 0.4 MG/5 ML SYR IV ONE (09:30)
[2021-09-29] MEDS ORDERED: POTASSIUM CL SA 10 MEQ TAB PO ONE ×2 (10:00→21:00)
--- NOTE | 2021-09-29 13:05 | CON ---
Date of Consultation: 09/28/2021 Reason For Consultation: Dyspnea on exertion and chest tightness. History Of Present Illness: Ms. Palmer is a 46-year-old woman, who has a history of hypertension for which she takes metoprolol, does not have a family history of heart disease. Came in with dyspne a on exertion. No nausea, vomiting, diaphoresis, PND, orthopnea, pedal edema, palpitations, or synco pe. Denied any fever or chills or cough. By the time I saw her, her EKG showed questionable anterol ateral ischemia. Troponin was negative. BNP was negative. Cholesterol was 229. Her troponin was s lightly elevated at 87. Her potassium was 3.2. She was still having some shortness of breath especi ally with minimal exertion. Family History: Positive for heart disease. Allergies: NONE. Medications: Metoprolol is only medicine. Review of Systems: Negative. Social History: Negative. Past Medical History: Positive for hypertension. Physical Examination: General: She was rather anxious, but no acute distress. Vital Signs: Stable, afebrile. HEENT: Negative. Neck: Supple with no bruit. Chest: Clear to auscultation and percussion. Cardiac: Revealed a regular rhythm and rate. No murmurs, gallops, or rubs. Abdomen: Benign. Extremities: Revealed no clubbing, cyanosis, or edema. Diagnostic Data: Listed earlier. Impression And Plan: The patient with history of hypertension. She is fairly young, has a family hi story of heart disease, low potassium, borderline troponin, cholesterol slightly elevated. She is de finitely at high risk of having coronary artery disease. Echocardiogram is pending. Pam is pen bettie. We will see what that shows before making further decisions. Meanwhile, continue Lovenox, asp irin, hydralazine and inhalers. She may need a heart catheterization down the road. BRITTANY/MODL Voice ID: [id number] Report ID: [id number]
--- NOTE | 2021-09-29 17:48 | P.PN ---
Subjective Date of Service: 09/29/21 Chief Complaint: Chest pain and shortness of breath with exertion. Patient has no complaints today. She denies any chest pain. She apparently ate this morning before the stress test and t so it was canceled. Physical Examination - Vital Signs Temperature: 98.8 F Blood Pressure: 175/73 Pulse: 73 Respirations: 16 Pulse Ox (%): 95 - Physical Exam General: Alert, In no apparent distress, Oriented x3 HEENT: Mucous membr. moist/pink Neck: Supple, JVD not distended Respiratory: Clear to auscultation bilaterally, Normal air movement Cardiovascular: No edema, Regular rate/rhythm, Normal S1 S2, No murmurs Gastrointestinal: Normal bowel sounds, Soft and benign, Non-distended, No tenderness Musculoskeletal: No swelling Integumentary: No rashes Neurological: Normal strength at 5/5 x4 extr Assessment And Plan - Current Problems (Diagnosis) (1) Chest pain Current Visit: Yes Status: Acute (2) Non-STEMI (non-ST elevated myocardial infarction) Current Visit: Yes Status: Acute (3) Obesity Current Visit: No Status: Chronic Qualifiers: Obesity type: unspecified obesity type Obesity classification: adult class 1 (BMI 30 ? 34.9) Body mass index: BMI 33.0-33.9 (4) Hyperlipidemia Current Visit: Yes Status: Acute (5) Hypertension Current Visit: Yes Status: Acute - Plan Aspirin, metoprolol. Elevated LDL. Start Lipitor. Blood pressure elevated. Metoprolol for hypertension. Nuclear stress test in a.m. Cardiology input appreciated. Physician Review: Patient Assessed, Agree with Above Assessment and Plan
[2021-09-29] MEDS: METOPROLOL TAR 25 MG TAB PO SCH (20:43)
[2021-09-29] MEDS ORDERED: ATORVASTATIN 40 MG TAB PO SCH (21:00)
[2021-09-30] MEDS: METOPROLOL TAR 25 MG TAB PO SCH ×2 (07:04→17:58)
[2021-09-30 08:01] LABS: Potassium 3.8 mmol/L (3.5-5.1)
[2021-09-30] MEDS ORDERED: POTASSIUM CL SA 10 MEQ TAB PO ONE (08:10)
--- NOTE | 2021-09-30 08:13 | ECHO ---
HEIGHT: 4 ft 7 in WEIGHT: 157 lb 0 oz DATE OF STUDY: 09/29/[address]: Jose Mcintosh 2-DIMENSIONAL: YES M.MODE: YES DOPPLER: YES COLOR FLOW: YES TDS: PORTABLE: YES DEFINITY: BUBBLE STUDY: DIAGNOSIS: CHEST PAIN, BELOW LEFT EXTRREMITY CARDIAC HISTORY: CATHERIZATION: NO SURGERY: NO PROSTHETIC VALVE: NO PACEMAKER: NO MEASUREMENTS (cm) DIASTOLIC (NORMALS) SYSTOLIC (NORMALS) IVSd 1.0 (0.6-1.2) LA Diam 2.4 (1.9-4.0) LVEF 69% LVIDd 3.3 (3.5-5.7) LVIDs 2.1 (2.0-3.5) %FS 38% LVPWd 1.1 (0.6-1.2) Ao Diam 2.0 (2.0-3.7) 2 DIMENSIONAL ASSESSMENT: RIGHT ATRIUM: LEFT ATRIUM: RIGHT VENTRICLE: LEFT VENTRICLE: TRICUSPID VALVE: MITRAL VALVE: PULMONIC VALVE: AORTIC VALVE: PERICARDIAL EFFUSION: AORTIC ROOT: LEFT VENTRICULAR WALL MOTION: DOPPLER/COLOR FLOW: COMMENTS: NORMAL 2-DIMENSIONAL ECHOCARDIOGRAM. NO WALL MOTION ABNORMALITY. NO EFFUSION. TECHNOLOGIST: DIONE MORTON
[2021-09-30 08:52] VITALS: O2SAT 96
[2021-09-30] MEDS: ASPIRIN 325 MG TAB PO SCH (09:00)
[2021-09-30] MEDS: ENOXAPARIN 40 MG/0.4 ML SQ SCH (10:02)
[2021-09-30] MEDS: HYDRALAZINE HCL 20 MG/ML VIAL IV PRN (12:04)
[2021-09-30 17:04] VITALS: BP 124/58; TEMP 98.1
--- NOTE | 2021-09-30 17:25 | RAD REPORT ---
EXAM DESCRIPTION: NM - Rest Stress Cardiac Imaging - 09/30/2021 2:23 pm CLINICAL HISTORY: Chest pain COMPARISON: None. TECHNIQUE: The patient was administered 9.6 mCi of Tc 99m Sestamibi prior to resting SPECT imaging o f the heart. The patient was then administered 29.4 mCi of Tc 99m Sestamibi following exercise or pha rmacologic stress. Multiplanar SPECT images were reviewed. FINDINGS: The end diastolic volume is 85 ml, the end systolic volume is 31 ml, and the ejection frac tion is 63 %. Physiologic distribution of the radiopharmaceutical through the myocardium is noted. No stress induce d ischemic defect is seen to suggest stress induced ischemia. No fixed defect is seen to suggest hibe rnating myocardium or scarred myocardium. IMPRESSION: No stress induced ischemia or other suspicious findings. Ventricular volumes and ejection fraction are normal range.
--- NOTE | 2021-09-30 18:30 | P.DS ---
Admission Date: 09/28/21 Discharge Date: 09/30/21 Disposition: ROUTINE DISCHARGE Discharge Condition: FAIR Reason for Admission: Chest pain and shortness of breath with exertion. - Problems (1) Chest pain Current Visit: Yes Status: Acute (2) Non-STEMI (non-ST elevated myocardial infarction) Current Visit: Yes Status: Acute (3) Obesity Current Visit: No Status: Chronic Qualifiers: Obesity type: unspecified obesity type Obesity classification: adult class 1 (BMI 30 ? 34.9) Body mass index: BMI 33.0-33.9 (4) Hyperlipidemia Current Visit: Yes Status: Acute (5) Hypertension Current Visit: Yes Status: Acute Brief History of Present Illness: Patient is a 46-year-old female with a past medical history significant for obesity who presents with complaint of shortness of breath and cough. Patient reported that symptoms had been ongoing for the 2 weeks. Patient reports left chest wall pain. Patient indicated that pain radiates to her left shoulder and neck. Patient rated pain as 7/10 in severity and described pain as pressure in quality. Patient also reported that she has been having intermittent palpitations. Patient reports associated signs and symptoms of bilateral lower extremity edema, abdominal distention, polydipsia and polyuria. Patient decided to present to the hospital due to worsening symptoms. Troponin was mildly elevated. EKG demonstrated nonspecific ST-T changes. Patient was hospitalized for further management. Hospital Course: Patient admitted to the medical floor and started on aspirin, metoprolol twice daily. She was seen in consultation by cardiology-Dr. Perez. Her troponin was mildly elevated but trended flat. Nuclear stress test was done per Dr. Perez's recommendation and it did not show any stress-induced ischemia. Lipid profile showed significantly elevated LDL. Patient was started on Lipitor. Her blood pressure was elevated. She was on metoprolol for hypertension. Added low-dose amlodipine for better blood pressure control on discharge. Her echocardiogram was unremarkable with normal EF. Patient deemed stable for discharge per Cardiology. Vital Signs/Physical Exam: Temp Pulse Resp BP Pulse Ox 98.1 F 74 18 124/58 L 97 09/30/21 16:00 09/30/21 16:00 09/30/21 16:00 09/30/21 16:00 09/30/21 16:00 General: Alert, In no apparent distress, Oriented x3 HEENT: Mucous membr. moist/pink Neck: JVD not distended Respiratory: Clear to auscultation bilaterally, Normal air movement Cardiovascular: No edema, Regular rate/rhythm, Normal S1 S2 Gastrointestinal: Normal bowel sounds, Soft and benign, Non-distended, No tenderness Musculoskeletal: No swelling, No tenderness Integumentary: No rashes, No cyanosis Neurological: Normal strength at 5/5 x4 extr Laboratory Data at Discharge: WBC 7.3 K/uL (4.3-10.9) D 09/29/21 03:06 Hgb 14.5 g/dL (12.0-15.0) 09/29/21 03:06 Hct 42.4 % (36.0-45.0) 09/29/21 03:06 Plt Count 289 K/uL (152-406) 09/29/21 03:06 PT 11.2 SECONDS (9.5-12.5) 09/28/21 06:00 INR 1.02 09/28/21 06:00 Sodium 139 mmol/L (136-145) 09/30/21 07:24 Potassium 3.8 mmol/L (3.5-5.1) 09/30/21 07:24 BUN 15 mg/dL (7-18) 09/30/21 07:24 Creatinine 0.73 mg/dL (0.55-1.3) 09/30/21 07:24 Glucose 101 mg/dL (74-106) 09/30/21 07:24 Magnesium 2.2 mg/dL (1.8-2.4) 09/28/21 09:56 Total Bilirubin 1.3 mg/dL (0.2-1.0) H 09/28/21 06:00 AST 14 U/L (15-37) L 09/28/21 06:00 ALT 31 U/L (12-78) 09/28/21 06:00 Alkaline Phosphatase 64 U/L (45-117) 09/28/21 06:00 Triglycerides 136 mg/dL (<150) 09/28/21 09:56 Cholesterol 221 mg/dL (<200) H 09/28/21 09:56 HDL Cholesterol 48 mg/dL (40-60) 09/28/21 09:56 Cholesterol/HDL Ratio 4.60 09/28/21 09:56 Home Medications: Metoprolol Succinate [Toprol Xl*] 1 tab PO DAILY 09/28/21 Amlodipine [Norvasc*] 5 mg PO DAILY #30 tab 09/30/21 Aspirin [Aspirin EC 81 MG] 81 mg PO DAILY #30 tablet. 09/30/21 Atorvastatin Calcium [Lipitor] 40 mg PO BEDTIME #30 tab 09/30/21 New Medications: Aspirin [Aspirin EC 81 MG] 81 mg PO DAILY #30 tablet. Atorvastatin Calcium [Lipitor] 40 mg PO BEDTIME #30 tab Amlodipine [Norvasc*] 5 mg PO DAILY #30 tab Diet: AHA Activity: Ad guera Followup: Ed Perez MD [ACTIVE - CAN ADMIT] - Boyd Phelps MD [Primary Care Provider] - 1-2 Weeks Time spent managing pt's care (in minutes): 38
--- NOTE | 2021-10-01 06:45 | TREADPHA ---
DX: CHEST PAIN Date of Study: 09/30/2021 Ht: 4' 7 " Wt: 157 lb 0 oz Consulting Physician: RHINA MEDICATIONS: PROVENIL, LIPITOR, LOVENOX, APRESOLINE, LOPRESSOR HISTORY: 46 YEAR OLD WITH HYPERTENSION, POSTIVIE ELECTROCARDIOGRAM, DYSPNEA ON EXERSION PHYSICIAL EXAMINATION: RESTING B.P.: 153/87 RESTING H.R.: 74 RESTING EKG: SINUS RHYTHM, NON-SPECIFIC T WAVE PROTOCOL: PHARMACOLOGIC EXERCISE TIME: 3:30 B.P. AT [place] STRESS: IMPRESSION: LEXISCAN STRESS TEST PERFORMED. CARDIOLITE INJECTED PER PROTOCOL. SEE NUCLEAR MEDICINE REPORT. NO SUPRAVENTRICULAR TACHYCARDIA. NO VENTRICULAR TACHYCARDIA. OCCASIONAL PERMATURE VENTRICULAR COMPLEXES NOTED. RESPIRATORY EVEN NONLABORED. PATEINT TOLERATED WELL.
--- NOTE | 2021-10-01 20:26 | CON ---
Date of Consultation: 09/28/2021 Reason For Consultation: Palpitation and dyspnea on exertion and edema. History Of Present Illness: Ms. Palmer is a 46-year-old woman with a positive family history of h eart disease, hypertension. Came in with cough, edema, palpitation, dyspnea on exertion, was found t o have minimally elevated troponin and was trending down. Denied any chest pain, nausea, vomiting, d iaphoresis. Denied any PND, orthopnea. Denied any syncope, fever or chills. Review of Systems: Positive for weight gain. Allergies: NONE. Family History: Positive for heart disease. Past Medical History: Includes hypertension. Medications: Listed by Dr. Hankins. Her primary care physician is Dr. Phelps. Physical Examination: Vital Signs: Stable, afebrile. HEENT: Negative. Neck: Supple without any bruit, lymphadenopathy, JVD, or thyromegaly. Chest: Clear to auscultation and percussion. Cardiac: Revealed a regular rhythm and rate. No murmurs, gallops, or rubs. Abdomen: Benign. Extremities: Revealed no clubbing, cyanosis, or edema. Diagnostic Data: Within normal limits except for EKG showing nonspecific changes in the anterolatera l leads. Troponin was slightly elevated. Impression And Plan: A young lady with history of hypertension, positive family history, mildly elev ated troponin, and nonspecific EKG changes. No chest pain. Her symptoms may be related to palpitati on. Echocardiogram is normal. Lexiscan is pending. CT angiogram of the chest is pending. Neverthe less, I think when she goes home, she should go home on low-dose beta-lexie and Lasix. Meanwhile, we will see what her stress test shows. BRITTANY/SONAL Voice ID: [id number] Report ID: [id number]
== END 2021-09-30 18:24 | disposition home or self-care (01) | DRG 282 ==
LOC: ER 03:23 → ERHOLD 09:18 → 4TH 20:17
PROVIDERS: ADMIT Hospitalist; ATTEND Hospitalist
DX: I21.4 Non-ST elevation (NSTEMI) myocardial infarction (principal); E66.9 Obesity, unspecified; Z68.36 Body mass index [BMI] 36.0-36.9, adult; E78.5 Hyperlipidemia, unspecified; I10 Essential (primary) hypertension; Z82.49 Family history of ischemic heart disease and other diseases of the circulatory system; Z20.822 Contact with and (suspected) exposure to COVID-19
CPT/HCPCS: 36415; 71046; 71275; 78452; 80048; 80061; 80076; 81003; 81025; 82550; 83036; 83735; 83880; 84132; 84145; 84439; 84443; 84484; 85025; 85379; 85610; 87804; 93005; 93017; 93306; 99285; A9500; J0360; J1650; J1940; J2405; J2785; Q9967; U0003